=== PATIENT | female | born 1960 | race Caucasian/White ===

== ENCOUNTER 2017-07-19 07:00 | Inpatient (IN) | payer OTHER ==
[~2017-07-19] VITALS: Ht 160 cm; Wt 90.7 kg
[~2017-07-19 07:00] MED LIST: PERCOCET 5/3251 TAB PO
== END 2017-07-28 15:00 | DRG 470 ==
LOC: O/R 07-26 04:52 → SURG 07-26 07:00
PROVIDERS: Orthopaedic Surgery
PROC: 0SRC0J9 Replacement of Right Knee Joint with Synthetic Substitute, Cemented, Open Approach (ICD-10-PCS; principal; 2017-07-26 13:00)
DX: M17.11 Unilateral primary osteoarthritis, right knee (principal); J45.998 Other asthma; E66.8 Other obesity; Z72.0 Tobacco use

== ENCOUNTER 2017-11-16 07:58 | Outpatient (CLI) | payer OTHER | END 2017-11-16 08:07 | disposition home or self-care (01) | LOC: RAD 07:58 | DX: M25.561 Pain in right knee (principal); M25.562 Pain in left knee ==

== ENCOUNTER 2022-02-16 07:00 | Inpatient (IN) | payer OTHER ==
[~2022-02-16] VITALS: Ht 160 cm; Wt 99.8 kg
[2022-02-16] MEDS ORDERED: COZAAR50 MG PO (08:36)
[2022-02-16] MEDS ORDERED: ROSUVASTATIN CA20 MG PO (08:36)
[2022-02-25] MEDS ORDERED: XARELTO10 MG PO (13:20)
[2022-02-25] MEDS ORDERED: TRAMADOL HCL50 MG PO (13:20)
[2022-02-25] MEDS ORDERED: GABAPENTIN100 MG PO (13:20)
[2022-02-25] MEDS ORDERED: NORFLEX100MG PO (13:20)
== END 2022-02-25 22:52 | disposition home or self-care (01) | DRG 470 ==
LOC: EDSTATUS 07:00 → CIR.AMB 02-23 07:00 → SURH 02-23 07:00 → O/R 02-23 07:13 → SURH 02-23 15:42
PROVIDERS: ADMIT Orthopaedic Surgery; ATTEND Orthopaedic Surgery
PROC: 0SRD0J9 Replacement of Left Knee Joint with Synthetic Substitute, Cemented, Open Approach (ICD-10-PCS; principal; 2022-02-23 07:00)
DX: M17.12 Unilateral primary osteoarthritis, left knee (principal); D62 Acute posthemorrhagic anemia; M85.662 Other cyst of bone, left lower leg; Z96.652 Presence of left artificial knee joint; Z72.0 Tobacco use